=== PATIENT | male | born 1945 | race Two or more races ===

== ENCOUNTER 2024-10-07 12:08 | Inpatient (IN) | payer MEDICARE, OTHER ==
[~2024-10-07] VITALS: Ht 167.6 cm; Wt 71.2 kg
[2024-10-07 13:15] LABS: PLATELET COUNT (AUTO) 274 K/uL (152-348); RED BLOOD CELL COUNT(AUTO) 4.95 MIL/uL (4.06-5.63); RED CELL DISTRIBUTION WIDTH 13.3 % (12.1-16.2); WHITE BLOOD COUNT (AUTO) 5.5 K/uL (3.6-10.2)
[2024-10-07 13:18] LABS: CREATININE 2.0 mg/dL (0.6-1.3); SODIUM SERUM 137 mmol/L (136-145); UREA NITROGEN, BLOOD 27 mg/dL (7-18)
[2024-10-07 13:23] LABS: ASPARTATE AMINOTRANSFERASE 17 U/L (15-37); TOTAL PROTEIN, SERUM 7.2 g/dL (6.4-8.2)
[2024-10-07 13:27] LABS: ETHANOL < 3 MG/DL (0-10)
[2024-10-07] MEDS ORDERED: EMPA25TA PO (14:27)
[2024-10-07] MEDS ORDERED: ISOS30TA9 PO (14:27)
[2024-10-07] MEDS ORDERED: ZINC50TA39 PO (14:27)
[2024-10-07] MEDS ORDERED: INSU100I26 SQ (14:27)
[2024-10-07] MEDS ORDERED: ACET-2605 PO (14:27)
[2024-10-07] MEDS ORDERED: BISA10SU61 RC (14:27)
[2024-10-07] MEDS ORDERED: VIBEGRON PO (14:27)
[2024-10-07] MEDS ORDERED: AMIN960L24 PO (14:27)
[2024-10-07] MEDS ORDERED: VIT1TABL46 PO (14:27)
[2024-10-07] MEDS ORDERED: DOCU100C36 PO (14:27)
[2024-10-07] MEDS ORDERED: ASPI81TA31 PO (14:27)
[2024-10-07] MEDS ORDERED: TAMS-3 PO (14:27)
[2024-10-07] MEDS ORDERED: ATOR40TA PO (14:27)
[2024-10-07] MEDS ORDERED: SACU1TAB PO (14:27)
[2024-10-07] MEDS ORDERED: ASCO100T12 PO (14:27)
[2024-10-07] MEDS ORDERED: VOLTAREN GEL 1% TOP (14:27)
[2024-10-07] MEDS ORDERED: ACET325C7 PO (14:27)
[2024-10-07] MEDS ORDERED: MELA3CAP2 PO (14:27)
[2024-10-07] MEDS ORDERED: CARV6.252 PO (14:27)
[2024-10-07] MEDS ORDERED: GLUC1KIT IM (14:27)
[2024-10-07] MEDS ORDERED: APIX5TAB PO (14:27)
[2024-10-07 15:22] LABS: *BILIRUBIN,URIN NEGATIVE (NEGATIVE); *BLOOD, URINE 1+ (NEGATIVE); *CLARITY,URINE CLEAR (CLEAR); *COLOR,URINE YELLOW (YELLOW); *KETONES,URINE NEGATIVE (NEGATIVE); *PROTEIN,URINE 3+ (NEGATIVE); *UROBILINOGEN,URINE 0.2 E.U./dl (NORMAL); LEUKOCYTE ESTERASE ,URINE NEGATIVE (NEGATIVE); NITRITE, URINE NEGATIVE (NEGATIVE); UGLUCOSE 2+ (NEGATIVE)
[2024-10-07 15:24] LABS: URINE AMORPHOUS URATE FEW /HPF
[2024-10-07 15:39] LABS: *AMPHETAMINE, URINE NEGATIVE (NEGATIVE); *BARBITURATE, URINE NEGATIVE (NEGATIVE); *BENZODIAZEPINE, URINE NEGATIVE (NEGATIVE); *CANNABINOID, URINE NEGATIVE (NEGATIVE); *COCCAINE, URINE NEGATIVE (NEGATIVE); *OPIATE, URINE NEGATIVE (NEGATIVE); *PHENCYCLIDINE SCREEN,URINE NEGATIVE (NEGATIVE); FENTANYL, URINE NEGATIVE (NEGATIVE)
[2024-10-07] MEDS ORDERED: ISOS20TA8 PO (17:07)
[2024-10-07] MEDS ORDERED: ZOLPIDEM 5 MG TABLET PO PRN (17:30)
[2024-10-07] MEDS ORDERED: LORAZEPAM 1 MG TABLET PO PRN (17:30)
[2024-10-07] MEDS ORDERED: MAGNESIUM HYDROXIDE 30 ML LIQUID UDC PO PRN (17:30)
[2024-10-07] MEDS ORDERED: MAG HYDROX/AL HYDROX/SIMETH 30 ML LIQUID UDC PO PRN (17:30)
[2024-10-07] MEDS ORDERED: DEXTROSE 50% 50 ML DISP.SYRIN IV PRN (20:15)
[2024-10-07 20:23] VITALS: BP 138/86; TEMP 98.1; O2SAT 100
[2024-10-07] MEDS: BLOOD SUGAR DIAGNOSTIC 1 EACH STRIP VI SCH (21:00)
[2024-10-08 07:33] LABS: PLATELET COUNT (AUTO) 278 K/uL (152-348); RED BLOOD CELL COUNT(AUTO) 4.88 MIL/uL (4.06-5.63); RED CELL DISTRIBUTION WIDTH 13.3 % (12.1-16.2); WHITE BLOOD COUNT (AUTO) 5.4 K/uL (3.6-10.2)
[2024-10-08 08:30] VITALS: BP 153/77; TEMP 98.1; O2SAT 100
[2024-10-08 08:33] LABS: ASPARTATE AMINOTRANSFERASE 18 U/L (15-37); CREATININE 1.7 mg/dL (0.6-1.3); SODIUM SERUM 137 mmol/L (136-145); TOTAL PROTEIN, SERUM 6.8 g/dL (6.4-8.2); UREA NITROGEN, BLOOD 26 mg/dL (7-18)
[2024-10-08] MEDS: ESCITALOPRAM OXALATE 10 MG TABLET PO SCH (12:21)
[2024-10-08] MEDS ORDERED: ACETAMINOPHEN ES 500 MG TABLET- SA PATIENTS-PAIN ONLY PO PRN (12:45)
[2024-10-08] MEDS ORDERED: DEXTROSE 50% 50 ML DISP.SYRIN IV PRN (12:45)
[2024-10-08] MEDS ORDERED: INSULIN REGULAR, HUMAN 1000 UNIT/10 ML VIAL SQ PRN (12:45)
[2024-10-08] MEDS: PROTEIN SUPPLEMENT (PROSTAT) 30 ML LIQUID PO SCH (12:45)
[2024-10-08] MEDS ORDERED: BISACODYL 10 MG SUPP.RECT RC PRN (12:45)
[2024-10-08] MEDS ORDERED: HOME MED MISCELLANEOUS XX SCH ×4 (12:45)
[2024-10-08] MEDS: ASPIRIN 81 MG TAB.CHEW PO SCH (13:03)
[2024-10-08] MEDS: ISOSORBIDE DINITRATE 20 MG TABLET PO SCH (14:31)
[2024-10-08] MEDS: BLOOD SUGAR DIAGNOSTIC 1 EACH STRIP VI SCH (16:26)
[2024-10-08] MEDS: INSULIN REGULAR, HUMAN 1000 UNIT/10 ML VIAL SQ PRN (16:29)
[2024-10-08 16:37] VITALS: BP 145/74; TEMP 98.1; O2SAT 100
[2024-10-08 20:00] VITALS: BP 133/83; TEMP 98; O2SAT 98
[2024-10-08] MEDS: QUETIAPINE FUMARATE 25 MG TABLET PO SCH (20:33)
[2024-10-08] MEDS: DOCUSATE SODIUM 100 MG CAPSULE PO SCH (20:33)
[2024-10-08] MEDS: TEMAZEPAM 7.5 MG CAPSULE PO PRN (20:33)
[2024-10-08] MEDS: EMPAGLIFLOZIN 25 MG TABLET PO SCH (20:34)
[2024-10-08] MEDS: ATORVASTATIN 40 MG TABLET PO SCH (20:34)
[2024-10-08] MEDS: SACUBITRIL/VALSARTAN 24 MG-26 TABLET PO SCH (20:35)
[2024-10-08] MEDS: CARVEDILOL 6.25 MG TABLET PO SCH (20:35)
[2024-10-08] MEDS: APIXABAN 5 MG TABLET PO SCH (20:37)
[2024-10-09] MEDS: LORAZEPAM 0.5 MG TABLET PO PRN (01:29)
[2024-10-09] MEDS: ACETAMINOPHEN 325 MG TABLET PO PRN (01:31)
[2024-10-09 07:15] LABS: PLATELET COUNT (AUTO) 271 K/uL (152-348); RED BLOOD CELL COUNT(AUTO) 4.38 MIL/uL (4.06-5.63); RED CELL DISTRIBUTION WIDTH 13.3 % (12.1-16.2); WHITE BLOOD COUNT (AUTO) 3.9 K/uL (3.6-10.2)
[2024-10-09 07:45] VITALS: BP 116/65; TEMP 97.9; O2SAT 96
[2024-10-09 07:47] LABS: ASPARTATE AMINOTRANSFERASE 18 U/L (15-37); CREATINE KINASE, TOTAL 23 U/L (39-308); CREATININE 1.8 mg/dL (0.6-1.3); SODIUM SERUM 141 mmol/L (136-145); TOTAL PROTEIN, SERUM 6.1 g/dL (6.4-8.2); UREA NITROGEN, BLOOD 29 mg/dL (7-18)
[2024-10-09] MEDS: TAMSULOSIN HCL 0.4 MG CAP.SR.24H PO SCH (08:44)
[2024-10-09] MEDS: ASCORBIC ACID 500 MG TABLET PO SCH (08:44)
[2024-10-09] MEDS: ZINC SULFATE 220 MG CAPSULE PO SCH (08:44)
[2024-10-09] MEDS: INSULIN GLARGINE,HUM 300 UNITS/3 ML CARTRIDGE SQ SCH (08:50)
[2024-10-09] MEDS: FOLIC ACID/VITAMIN B COMP W-C TABLET PO SCH (08:55)
[2024-10-09] MEDS ORDERED: VIBEGRON 75 MG PO SCH (09:00)
[2024-10-09 15:18] VITALS: BP 142/79; TEMP 97.9; O2SAT 100
[2024-10-09] MEDS ORDERED: ESCI-9 PO (17:29)
[2024-10-09] MEDS ORDERED: MAG30ORA PO (17:30)
[2024-10-09] MEDS ORDERED: LORA0.5T48 PO (17:30)
[2024-10-09] MEDS ORDERED: MAGN400O6 PO (17:31)
[2024-10-09] MEDS ORDERED: TEMA15CA PO (17:32)
[2024-10-09] MEDS ORDERED: QUET25TA PO (17:32)
[2024-10-09] MEDS ORDERED: INSU100V28 SQ (17:43)
[2024-10-09] MEDS ORDERED: ZINC113P3 TP (17:44)
[2024-10-09] MEDS ORDERED: REMEDY ESSENTIAL ZINC PASTE 113 GM TOP SCH (21:00)
[2024-10-10 06:06] LABS: PTH, INTACT 33 pg/mL (15-65)
== END 2024-10-09 16:38 | disposition short-term general hospital (02) | DRG 885 ==
LOC: ER 12:08 → GPS 16:29
PROVIDERS: ADMIT Psychiatry & Neurology Psychosomatic Medicine; ATTEND Internal Medicine
DX: F29 Unspecified psychosis not due to a substance or known physiological condition (principal); E11.52 Type 2 diabetes mellitus with diabetic peripheral angiopathy with gangrene; N18.9 Chronic kidney disease, unspecified; N17.0 Acute kidney failure with tubular necrosis; I70.268 Atherosclerosis of native arteries of extremities with gangrene, other extremity; F32.3 Major depressive disorder, single episode, severe with psychotic features; I69.354 Hemiplegia and hemiparesis following cerebral infarction affecting left non-dominant side; F01.518 Vascular dementia, unspecified severity, with other behavioral disturbance; N25.81 Secondary hyperparathyroidism of renal origin; L98.498 Non-pressure chronic ulcer of skin of other sites with other specified severity; I13.0 Hypertensive heart and chronic kidney disease with heart failure and stage 1 through stage 4 chronic kidney disease, or unspecified chronic kidney disease; N13.8 Other obstructive and reflux uropathy; F01.54 Vascular dementia, unspecified severity, with anxiety; I48.0 Paroxysmal atrial fibrillation; Z95.0 Presence of cardiac pacemaker; Z74.09 Other reduced mobility; Z91.81 History of falling; N40.1 Benign prostatic hyperplasia with lower urinary tract symptoms; E78.5 Hyperlipidemia, unspecified; N25.0 Renal osteodystrophy; E11.42 Type 2 diabetes mellitus with diabetic polyneuropathy; Z89.411 Acquired absence of right great toe; Z79.84 Long term (current) use of oral hypoglycemic drugs; E11.22 Type 2 diabetes mellitus with diabetic chronic kidney disease; E11.621 Type 2 diabetes mellitus with foot ulcer; N32.81 Overactive bladder; L08.9 Local infection of the skin and subcutaneous tissue, unspecified; I50.9 Heart failure, unspecified; R31.9 Hematuria, unspecified; Z79.899 Other long term (current) drug therapy; Z79.01 Long term (current) use of anticoagulants
CPT/HCPCS: 36415; 71045; 73630; 76770; 83735; 83970; 84100; 84155; 84165; 84443; 85025; 93005; A4606; A4663; G0480; J1815

== ENCOUNTER 2024-10-09 16:40 | Inpatient (IN) | payer MEDICARE, OTHER ==
[~2024-10-09] VITALS: Ht 167.6 cm; Wt 71.2 kg
[~2024-10-09 16:40] MED LIST: ACET-2605 PO; ACET325C7 PO; AMIN960L24 PO; APIX5TAB PO; ASCO100T12 PO; ASPI81TA31 PO; ATOR40TA PO; BISA10SU61 RC; CARV6.252 PO; DOCU100C36 PO; EMPA25TA PO; GLUC1KIT IM; INSU100I26 SQ; ISOS20TA8 PO; MELA3CAP2 PO; SACU1TAB PO; TAMS-3 PO; VIBEGRON PO; VIT1TABL46 PO; VOLTAREN GEL 1% TOP; ZINC50TA39 PO
[2024-10-09] MEDS ORDERED: ESCI-9 PO (17:29)
[2024-10-09] MEDS ORDERED: LORA0.5T48 PO (17:30)
[2024-10-09] MEDS ORDERED: MAG30ORA PO (17:30)
[2024-10-09] MEDS ORDERED: MAGN400O6 PO (17:31)
[2024-10-09] MEDS ORDERED: TEMA15CA PO (17:32)
[2024-10-09] MEDS ORDERED: QUET25TA PO (17:32)
[2024-10-09] MEDS ORDERED: INSU100V28 SQ (17:43)
[2024-10-09] MEDS ORDERED: ZINC113P3 TP (17:44)
[2024-10-09 18:16] VITALS: BP 154/87; TEMP 97.7; O2SAT 100
[2024-10-09] MEDS ORDERED: DEXTROSE 50% 50 ML DISP.SYRIN IV PRN (18:45)
[2024-10-09] MEDS ORDERED: MAGNESIUM HYDROXIDE 30 ML LIQUID UDC PO PRN (18:45)
[2024-10-09] MEDS ORDERED: REMEDY ESSENTIAL ZINC PASTE 113 GM TP PRN (18:45)
[2024-10-09] MEDS ORDERED: ONDANSETRON 4 MG/2 ML VIAL IV PRN (18:45)
[2024-10-09] MEDS ORDERED: ACETAMINOPHEN 325 MG TABLET PO PRN (18:45)
[2024-10-09 20:06] VITALS: BP 160/90; TEMP 97.7; O2SAT 98
[2024-10-09 21:00] VITALS: BP 145/85; TEMP 97.7; O2SAT 98
[2024-10-09] MEDS: BLOOD SUGAR DIAGNOSTIC 1 EACH STRIP VI SCH (21:00)
[2024-10-09] MEDS ORDERED: VANCOMYCIN IV 200 ML ONE (22:14)
[2024-10-09] MEDS: VANCOMYCIN IV 1,000 MG in IV DEXTROSE 5% 250 ML IV ONE (22:21)
[2024-10-10 04:35] VITALS: BP 150/83; TEMP 98.5; O2SAT 98
[2024-10-10] MEDS: PANTOPRAZOLE SODIUM 40 MG TABLET.DR PO SCH (06:07)
[2024-10-10 06:40] LABS: PLATELET COUNT (AUTO) 277 K/uL (152-348); RED BLOOD CELL COUNT(AUTO) 4.75 MIL/uL (4.06-5.63); RED CELL DISTRIBUTION WIDTH 13.1 % (12.1-16.2); WHITE BLOOD COUNT (AUTO) 4.7 K/uL (3.6-10.2)
[2024-10-10 06:55] LABS: CREATININE 1.5 mg/dL (0.6-1.3); SODIUM SERUM 136 mmol/L (136-145); UREA NITROGEN, BLOOD 27 mg/dL (7-18)
[2024-10-10] MEDS: INSULIN REGULAR, HUMAN 1000 UNIT/10 ML VIAL SQ PRN (09:03)
[2024-10-10] MEDS ORDERED: LORAZEPAM 0.5 MG TABLET PO PRN (11:30)
[2024-10-10] MEDS ORDERED: TEMAZEPAM 15 MG CAPSULE PO PRN (11:30)
[2024-10-10] MEDS ORDERED: MAGNESIUM HYDROXIDE 30 ML LIQUID UDC PO PRN (11:30)
[2024-10-10] MEDS ORDERED: HOME MED MISCELLANEOUS XX SCH ×4 (11:30)
[2024-10-10] MEDS ORDERED: MAG HYDROX/AL HYDROX/SIMETH 30 ML LIQUID UDC PO PRN (11:30)
[2024-10-10] MEDS ORDERED: ACETAMINOPHEN ES 500 MG TABLET- SA PATIENTS-PAIN ONLY PO PRN (11:30)
[2024-10-10] MEDS ORDERED: BISACODYL 10 MG SUPP.RECT RC PRN (11:30)
[2024-10-10 11:50] VITALS: BP 132/78; TEMP 98; O2SAT 98
[2024-10-10] MEDS: ISOSORBIDE DINITRATE 20 MG TABLET PO SCH (13:59)
[2024-10-10] MEDS ORDERED: TEMAZEPAM 7.5 MG CAPSULE PO PRN (16:00)
[2024-10-10 16:27] VITALS: BP 101/55; TEMP 97.8; O2SAT 96
[2024-10-10] MEDS ORDERED: PROTEIN SUPPLEMENT (PROSTAT) 30 ML LIQUID PO SCH (17:00)
[2024-10-10] MEDS ORDERED: DOCUSATE SODIUM 100 MG CAPSULE PO SCH (21:00)
[2024-10-10] MEDS ORDERED: INSULIN GLARGINE,HUM 300 UNITS/3 ML CARTRIDGE SQ SCH (21:00)
[2024-10-10] MEDS ORDERED: QUETIAPINE FUMARATE 25 MG TABLET PO SCH (21:00)
[2024-10-10] MEDS ORDERED: APIXABAN 5 MG TABLET PO SCH (21:00)
[2024-10-10] MEDS ORDERED: EMPAGLIFLOZIN 25 MG TABLET PO SCH (21:00)
[2024-10-10] MEDS ORDERED: SACUBITRIL/VALSARTAN 24 MG-26 TABLET PO SCH (21:00)
[2024-10-10] MEDS ORDERED: ATORVASTATIN 40 MG TABLET PO SCH (21:00)
[2024-10-10] MEDS ORDERED: CARVEDILOL 6.25 MG TABLET PO SCH (21:00)
[2024-10-11] MEDS ORDERED: PROTEIN SUPPLEMENT (PROSTAT) 30 ML LIQUID PO SCH (08:00)
[2024-10-11] MEDS ORDERED: ASCORBIC ACID 500 MG TABLET PO SCH (09:00)
[2024-10-11] MEDS ORDERED: ZINC SULFATE 220 MG CAPSULE PO SCH (09:00)
[2024-10-11] MEDS ORDERED: FOLIC ACID/VITAMIN B COMP W-C TABLET PO SCH (09:00)
[2024-10-11] MEDS ORDERED: ASPIRIN 81 MG TAB.CHEW PO SCH (09:00)
[2024-10-11] MEDS ORDERED: TAMSULOSIN HCL 0.4 MG CAP.SR.24H PO SCH (09:00)
[2024-10-11] MEDS ORDERED: ESCITALOPRAM OXALATE 10 MG TABLET PO SCH (09:00)
== END 2024-10-10 17:50 | disposition short-term general hospital (02) | DRG 604 ==
LOC: MEDSURG3 16:40
PROVIDERS: ADMIT Nurse Practitioner Acute Care; ATTEND Nurse Practitioner Acute Care
DX: S91.104A Unspecified open wound of right lesser toe(s) without damage to nail, initial encounter (principal); I50.33 Acute on chronic diastolic (congestive) heart failure; D68.59 Other primary thrombophilia; N13.8 Other obstructive and reflux uropathy; F03.92 Unspecified dementia, unspecified severity, with psychotic disturbance; E11.52 Type 2 diabetes mellitus with diabetic peripheral angiopathy with gangrene; I96 Gangrene, not elsewhere classified; N17.9 Acute kidney failure, unspecified; X58.XXXA Exposure to other specified factors, initial encounter; Y92.89 Other specified places as the place of occurrence of the external cause; Z74.09 Other reduced mobility; N40.1 Benign prostatic hyperplasia with lower urinary tract symptoms; R33.8 Other retention of urine; I11.0 Hypertensive heart disease with heart failure; N32.81 Overactive bladder; E78.5 Hyperlipidemia, unspecified; Z79.84 Long term (current) use of oral hypoglycemic drugs; Z79.4 Long term (current) use of insulin; Z79.01 Long term (current) use of anticoagulants; Z89.411 Acquired absence of right great toe; L03.031 Cellulitis of right toe
CPT/HCPCS: 36415; 83735; 84100; 85025; A4663; G0378; J1815; J3373; J7050